=== PATIENT | female | born 1975 | race American Indian/Alaskan Native ===

== ENCOUNTER 2019-10-28 19:26 | Emergency (ER) | payer SELFPAY ==
[2019-10-28 20:18] VITALS: BP 146/102
--- NOTE | 2019-10-28 22:59 | Emergency Department Report ---
Blank Doc - Documentation Documentation: Patient was placed in room 34 but left before I was able to see her. Patient did not give any noticed that she will be leaving.
== END 2019-10-28 23:00 | disposition left against medical advice (07) ==
LOC: ED 19:26
DX: R07.89 Other chest pain (principal); Z53.21 Procedure and treatment not carried out due to patient leaving prior to being seen by health care provider
CPT/HCPCS: 93005; 93010